=== PATIENT | female | born 1985 | race African-American/Black ===

== ENCOUNTER → 2022-05-04 | Outpatient (CLI) | payer OTHER | LOC: M PLAIMG 15:17 | PROVIDERS: ATTEND Physician Assistant | DX: R51.9 Headache, unspecified (principal) ==

== ENCOUNTER 2022-07-19 10:23 | Emergency (ER) | payer OTHER ==
[~2022-07-19] VITALS: Ht 172.7 cm; Wt 72.8 kg
[2022-07-19] MEDS ORDERED: NS 1,000 ML IV ONE (11:25)
[2022-07-19] MEDS ORDERED: MECLIZINE 25 MG TABLET PO ONE (11:25)
[2022-07-19] MEDS ORDERED: AMIT25TA17 (11:49)
[2022-07-19] MEDS ORDERED: GABA-1171 (11:49)
[2022-07-19] MEDS ORDERED: RIZA10TA2 (11:49)
[2022-07-19 11:53] LABS: BASO % 0.5 % (0.0-1.0); EOS % 0.4 % (0.0-3.0); HEMATOCRIT 39.1 % (36.0-47.0); HEMOGLOBIN 13.5 g/dl (12.0-15.5); LYMPH # 1.3 10^3/uL (1.5-5.0); LYMPH % 18.1 % (24.0-44.0); MEAN CORPUSCULAR HEMOGLOBIN 28.4 pg (27.0-33.0); MEAN CORPUSCULAR HGB CONC 34.5 g/dl (32.0-36.5); MEAN CORPUSCULAR VOLUME 82.3 fl (80.0-96.0); MONO # 0.3 10^3/uL (0.0-0.8); MONO % 4.1 % (2.0-8.0); NEUTROPHILS # 5.6 10^3/uL (1.5-8.5); NEUTROPHILS % 76.6 % (36.0-66.0); PLATELET COUNT, AUTOMATED 329 10^3/uL (150-450); RED BLOOD COUNT 4.75 10^6/uL (4.00-5.40); WHITE BLOOD COUNT 7.4 10^3/uL (4.0-10.0)
[2022-07-19 12:16] LABS: INR 1.01; PROTHROMBIN TIME 13.5 SECONDS (12.5-14.5)
[2022-07-19 12:17] LABS: AMPHETAMINES LEVEL URINE NEGATIVE (NEGATIVE); BARBITURATES URINE NEGATIVE (NEGATIVE); BENZODIAZEPINES URINE NEGATIVE (NEGATIVE); COCAINE METABOLITE URINE NEGATIVE (NEGATIVE); METHADONE URINE NEGATIVE (NEGATIVE); OPIATES URINE NEGATIVE (NEGATIVE); PHENCYCLIDINE URINE NEGATIVE (NEGATIVE)
[2022-07-19 12:18] LABS: CANNABINOIDS URINE NEGATIVE (NEGATIVE)
[2022-07-19 12:21] LABS: ETHYL ALCOHOL (ETHANOL) 0.003 % (0.000-0.010)
[2022-07-19 12:23] LABS: ALBUMIN 4.1 G/DL (3.2-5.2); ALKALINE PHOSPHATASE 49 U/L (46-116); ALT/SGPT 14 U/L (7.0-40); AST/SGOT 15 U/L (<34); BILIRUBIN,DIRECT 0.2 MG/DL (<0.4); BILIRUBIN,TOTAL 0.6 MG/DL (0.3-1.2); BLOOD UREA NITROGEN 9 MG/DL (9-23); CALCIUM LEVEL 10.1 MG/DL (8.5-10.1); CARBON DIOXIDE LEVEL 26 MMOL/L (20-31); CHLORIDE LEVEL 105 MMOL/L (98-107); GLOMERULAR FILTRATION RATE > 60.0 (>60); GLUCOSE, FASTING 82 MG/DL (60-100); POTASSIUM SERUM 3.9 MMOL/L (3.5-5.1); SODIUM LEVEL 138 MMOL/L (136-145); TOTAL PROTEIN 7.8 G/DL (5.7-8.2)
[2022-07-19 12:25] LABS: THYROID STIMULATING HORMONE 1.397 uIU/ML (0.55-4.78)
[2022-07-19 12:28] LABS: RSV AMPLIFICATION NEGATIVE (NEGATIVE)
[2022-07-19] MEDS ORDERED: MECL-169 PO (12:37)
[2022-07-19 12:41] VITALS: BP 124/77
== END 2022-07-19 13:01 | disposition home or self-care (01) ==
LOC: M ED 10:23
DX: H81.4 Vertigo of central origin (principal); Z79.899 Other long term (current) drug therapy

== ENCOUNTER 2022-11-11 09:19 | Emergency (ER) | payer OTHER ==
[~2022-11-11] VITALS: Ht 172.7 cm; Wt 70.4 kg
[~2022-11-11 09:19] MED LIST: AMIT25TA17; GABA-1171; MECL-169 PO; RIZA10TA2
[2022-11-11] MEDS ORDERED: OCUF0.25 OP (11:47)
[2022-11-11 12:03] VITALS: BP 118/86; TEMP 97; O2SAT 96
== END 2022-11-11 12:04 | disposition home or self-care (01) ==
LOC: M ED 09:19
DX: J02.9 Acute pharyngitis, unspecified (principal); H10.33 Unspecified acute conjunctivitis, bilateral; Z79.899 Other long term (current) drug therapy

== ENCOUNTER 2023-02-27 12:36 | Emergency (ER) | payer OTHER ==
[~2023-02-27] VITALS: Ht 172.7 cm; Wt 82.8 kg
[~2023-02-27 12:36] MED LIST changes: -AMIT25TA17; +AMIT25TA19; +OCUF0.25 OP
[2023-02-27] MEDS ORDERED: HYDR-643 PO (12:45)
[2023-02-27] MEDS ORDERED: KETOROLAC 60MG 2ML VIAL IM ONE (16:10)
[2023-02-27] MEDS ORDERED: methocarbamoL 750 MG TAB PO ONE ×3 (16:10→17:50)
[2023-02-27] MEDS ORDERED: LIDOCAINE 5% (LIDODERM) PATCH TD ONE (16:10)
[2023-02-27] MEDS ORDERED: NORCO, ANEXSIA 5/325MG TABLET (HYDROcodone/ACETAMINOPHEN) PO ONE (17:00)
[2023-02-27] MEDS ORDERED: methylPREDNISolone 125MG 2ML VIAL IM ONE (17:00)
[2023-02-27 17:47] VITALS: BP 129/81; TEMP 97.7; O2SAT 98
[2023-02-27] MEDS ORDERED: MEDR4PAK PO (17:52)
[2023-02-27] MEDS ORDERED: ASPE4PAD TOP (17:52)
[2023-02-27] MEDS ORDERED: NAPR-837 PO (17:52)
[2023-02-27] MEDS ORDERED: METH-1165 PO (17:52)
== END 2023-02-27 18:12 | disposition home or self-care (01) ==
LOC: M ED 12:36
DX: M54.50 Low back pain, unspecified (principal); R51.9 Headache, unspecified; Z79.899 Other long term (current) drug therapy
CPT/HCPCS: 72110; 96372; 99283; J1885; J2930